=== PATIENT | female | born 1945 | race African-American/Black ===

== ENCOUNTER 2021-01-10 08:16 | Emergency (ER) | payer MEDICARE, OTHER ==
[~2021-01-10] VITALS: Ht 162.6 cm; Wt 72.0 kg
--- NOTE | 2021-01-10 08:56 | PHYS DOC ---
General Adult EDM: Chief Complaint: BACK PAIN - NO INJURY HPI: HPI: Patient is a 75 year old female who presented to ER for evaluation of right- sided rib pain for 3 days. Patient denies any injury. Patient lives at the residential, they did an x-ray of her thoracic spine, did not show any acute problem but arthritis. 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 Patient denies any trouble breathing, no cough, no fever. Patient has been on [place] for pain but the pain gets worse whenever she moves her upper torso. Patient said 2 years ago she had the same pain but on the left side. They did not find anything wrong then, after a month the pain went away. Review of Systems: Review of Systems: Constitutional: Denies fever or chills. [] Eyes: Denies change in visual acuity. [] HENT: Denies nasal congestion or sore throat. [] Respiratory: Denies cough or shortness of breath. [] Cardiovascular: Denies chest pain or edema. [] GI: Denies abdominal pain, nausea, vomiting, bloody stools or diarrhea. [] : Denies dysuria. [] Musculoskeletal: Denies back pain or joint pain. Positive for Right side lateral lower ribs pain. Integument: Denies rash. [] Neurologic: Denies headache, focal weakness or sensory changes. [] Endocrine: Denies polyuria or polydipsia. [] Lymphatic: Denies swollen glands. [] Psychiatric: Denies depression or anxiety. [] Heart Score: Risk Factors: Risk Factors: DM, Current or recent (<one month) smoker, HTN, HLP, family history of CAD, obesity. Risk Scores: Score 0 - 3: 2.5% MACE over next 6 weeks - Discharge Home Score 4 - 6: 20.3% MACE over next 6 weeks - Admit for Clinical Observation Score 7 - 10: 72.7% MACE over next 6 weeks - Early Invasive Strategies Allergies: Allergies: Allergies Coded Allergies Type Severity Reaction Last Updated Verified No Known Drug Allergies 01/10/21 No Physical Exam: PE: Constitutional: Well developed, well nourished, no acute distress, non-toxic appearance. [] HENT: Normocephalic, atraumatic, bilateral external ears normal, oropharynx moist, no oral exudates, nose normal. [] Eyes: PERRLA, EOMI, conjunctiva normal, no discharge. [] Neck: Normal range of motion, no tenderness, supple, no stridor. [] Cardiovascular:Heart rate regular rhythm, no murmur [] Lungs & Thorax: Bilateral breath sounds clear to auscultation. There is tenderness to palpation on right lateral rib area around RIB 8TH TO 10TH, NO CREPITUS. THERE IS NO RASH ON THIS AREA. Abdomen: Bowel sounds normal, soft, no tenderness, no masses, no pulsatile masses. [] Skin: Warm, dry, no erythema, no rash. [] Back: No tenderness, no CVA tenderness. [] Extremities: No tenderness, no cyanosis, no clubbing, ROM intact, no edema. [] Neurologic: Alert and oriented X 3. Psychologic: Affect normal, judgement normal, mood normal. [] EKG: EKG: [] Radiology/Procedures: Radiology/Procedures: [][facility] [address] [place] [address] IMAGING REPORT Signed PATIENT: LOGAN ROCHA ACCOUNT: [id number] : 1945 LOCATION: ER AGE: 75 SEX: F EXAM STATUS: REG ER ORD. PHYSICIAN: FREIDA RACHEL DO REASON: right lateral ribs pain for two days, no injury PROCEDURE: RIBS RIGHT AND PA CHEST XR RIBS MIN 3 VIEWS RT W/PA CHEST DATE: 01/10/2021 8:57 AM INDICATION: right lateral ribs pain for two days, no injury COMPARISON: None available. FINDINGS: Chest: Heart size is within normal limits. No focal consolidations are seen. No evidence for pulmonary edema, pleural effusion, or pneumothorax. Bones: No radiographic evidence for a displaced, right-sided rib fracture is seen. IMPRESSION: No radiographic evidence for right-sided rib fracture. Electronically signed by: Curt Muhammad MD (01/10/2021 9:31 AM) [id number] DICTATED and SIGNED BY: CURT MUHAMMAD MD DATE: 01/10/21 [id number] 0 Course & Med Decision Making: Course & Med Decision Making Pertinent Labs and Imaging studies reviewed. (See chart for details) Patient is a 75-year-old female who was brought here by EMS from the residential due to right-sided rib pain, patient is wheelchair-bound, she had reduced function of the left side due to CVA. There is no injury. The pain is musculoskeletal in nature, hurt worse with movement, NO RASH to consider Shingles. xray of right rib and chest shown no fracture. will discharge her home with pain medication. Dragon Disclaimer: Dragon Disclaimer: This electronic medical record was generated, in whole or in part, using a voice recognition dictation system. Departure Departure Impression: Primary Impression: Rib pain on right side Disposition: 03 DC/TRF TO SNF (Discharge back to the [facility].) Condition: IMPROVED Referrals: MAIDA HOU MD (PCP) Patient Instructions: Chest Wall Pain Additional Instructions: Thank you for visiting our Emergency Department. We appreciate you trusting us with your care. If any additional problems come up don't hesitate to return to visit us. Please follow up with your primary care provider so they can plan additional care if needed and know about the problem that you had. If symptoms worsen come back to the Emergency Department. Any concerning symptoms that start such as chest pain, shortness of air, weakness or numbness on one side of the body, running high fevers or any other concerning symptoms return to the ER. Scripts Oxycodone Hcl (OXYCODONE HCL) 5 Mg Capsule 5 MG PO PRN Q6HRS PRN for PAIN, #15 TAB 0 Refills Prov: FREIDA RACHEL DO 01/10/21 FREIDA RACHEL DO Jan 10, 2021 08:56
--- NOTE | 2021-01-10 09:33 | RAD ---
XR RIBS MIN 3 VIEWS RT W/PA CHEST DATE: 01/10/2021 8:57 AM INDICATION: right lateral ribs pain for two days, no injury COMPARISON: None available. FINDINGS: Chest: Heart size is within normal limits. No focal consolidations are seen. No evidence for pulmona ry edema, pleural effusion, or pneumothorax. Bones: No radiographic evidence for a displaced, right-sided rib fracture is seen. IMPRESSION: No radiographic evidence for right-sided rib fracture. Electronically signed by: Chance Muhammad MD (01/10/2021 9:31 AM) [id number]
[2021-01-10 09:51] VITALS: BP 126/61
[2021-01-10] MEDS ORDERED: MORPHINE SULFATE 4 MG/ML VIAL. IM ONE (10:30)
[2021-01-10] MEDS ORDERED: OXYC5CAP PO (10:44)
== END 2021-01-10 13:45 | disposition home or self-care (01) ==
LOC: ER 08:16
DX: R07.81 Pleurodynia (principal); Z86.73 Personal history of transient ischemic attack (TIA), and cerebral infarction without residual deficits
CPT/HCPCS: 71101; 96372; 99285; J2270

== ENCOUNTER 2021-03-28 18:00 | Emergency (ER) | payer MEDICARE, OTHER ==
[~2021-03-28] VITALS: Ht 162.6 cm; Wt 71.8 kg
[~2021-03-28 18:00] MED LIST: OXYC5CAP PO
--- NOTE | 2021-03-28 18:22 | PHYS DOC ---
Past Medical History Past Medical History: CVA, Depression, High Cholesterol, Hypertension, Stroke Past Surgical History: Other Additional Past Surgical Histo: [place] Smoking Status: Never Smoker Alcohol Use: None General Adult HPI: HPI: Patient is a 75-year-old female who presents from longterm via EMS for fall. Onset was 6 hours prior to arrival. Patient was standing using her assistive walking device trying to fix her bed when she lost balance and reports her right foot falling under her, reports falling onto her left hip. Did not hit head, no loss of consciousness, takes 81 mg aspirin daily. Patient was found immediately after falling and was situated upright into a wheelchair and was able to wheelchair around throughout the day. 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 It was also found that she had blood in her urine prior to departure to our ER which was a new finding for her, she is asymptomatic without any dysuria, suprapubic pain or other concerning UTI-like findings. Patient subsequently transported to our ER for further evaluation Review of Systems: Review of Systems: Fourteen body systems of review of systems have been reviewed. See HPI for pertinent positives and negative responses, other barber all other systems are negative, non-pertinent or non-contributory Heart Score: C/O Chest Pain: No HEART Score for Chest Pain: HEART Score for Chest Pain Response (Comments) Value History Slighlty/Non-Suspicious 0 Age > 65 2 Risk Factors >3 Risk Factors or Hx CAD 2 Total 4 Risk Factors: Risk Factors: DM, Current or recent (<one month) smoker, HTN, HLP, family history of CAD, obesity. Risk Scores: Score 0 - 3: 2.5% MACE over next 6 weeks - Discharge Home Score 4 - 6: 20.3% MACE over next 6 weeks - Admit for Clinical Observation Score 7 - 10: 72.7% MACE over next 6 weeks - Early Invasive Strategies Allergies: Allergies: Allergies Coded Allergies Type Severity Reaction Last Updated Verified No Known Drug Allergies 01/10/21 No Physical Exam: PE: Constitutional: Pt is oriented to person, place, and time. Pt appears well-developed and well- nourished. HEENT: Head: Normocephalic and atraumatic. TMs clear, no hemotympanum Conjunctivae and EOM are normal. Pupils are equal, round, and reactive to light. Oropharynx is clear and moist. No hematomas or lacerations or abrasions to face or scalp OP clear, no blood, no malocclusion, dentition intact Nares clear, no nasal septal hematoma Midface stable Neck: C-spine midline nontender, no step-offs Cardiovascular: Normal rate, regular rhythm and normal heart sounds. Pulmonary/Chest: Effort normal and breath sounds normal. No respiratory distress. No wheezes. CTA bilaterally Abdominal: Soft. Bowel sounds are normal. Pt exhibits no distension. There is no tenderness. Musculoskeletal: No deformities, full ROM extremities Chest wall stable Pelvis stable and non-tender No vertebral TTP and spine without stepoffs Patient does have pain with palpation deep to left lateral buttock area but does not have issues with internal and external rotation of bilateral lower extremities Patient reports unable to fully weight-bear on both lower extremities. Has pain to palpation focally to bilateral navicular bone areas. States she also has right lateral malleolus pain on palpation. Bilateral knee examinations unremarkable Neurological: Pt is alert and oriented to person, place, and time. Moving all extremities willfully, able to wiggle all fingers and toes Alert and oriented x 3 Motor and sensory function intact, downward going toes, no saddle anesthesia Skin: Skin is warm and dry. No abrasions, no lacerations Psychiatric: Behavior is appropriate for situation Current Patient Data: Vital Signs: Vital Signs Date Time Temp Pulse Resp B/P (MAP) Pulse Ox O2 Delivery O2 Flow Rate FiO2 03/28/21 18:15 98.7 110 20 135/76 (95) 96 Room Air 98.7 Vital Signs Date Time Temp Pulse Resp B/P (MAP) Pulse Ox O2 Delivery O2 Flow Rate FiO2 03/28/21 18:15 98.7 110 20 135/76 (95) 96 Room Air 98.7 EKG: EKG: [] Radiology/Procedures: Radiology/Procedures: EXAMINATION: XR FOOT_RIGHT 3 VIEWS, XR EXAM OF ANKLE 3V, XR BILATERAL HIP (WITH OR WITHOUT PELVIS) LEFT 2 VIEWS CLINICAL HISTORY: Fall onto left hip, unwitnessed fall with bilateral medial mal pain, bilateral navicular pain after fall TECHNIQUE: XR FOOT_RIGHT 3 VIEWS, XR EXAM OF ANKLE 3V, XR BILATERAL HIP (WITH OR WITHOUT PELVIS) LEFT 2 VIEWS Number of Images/Views: 3 left hip, 6 bilateral ankles 3 right foot COMPARISON: None FINDINGS: LEFT HIP: Intact left total hip arthroplasty appears in satisfactory alignment with no evidence of hardware complication. Degenerative changes in the right hip incompletely evaluated. Pubic symphysis and SI joints maintained. Partially visualized lumbar degenerative changes. No acute fracture. BILATERAL ANKLES: Joint spaces and alignment relatively well-maintained. No acute fracture. Small posterior calcaneal enthesophytes bilaterally. Subcutaneous edema greater on the left. RIGHT FOOT: Overpenetrated images somewhat limits evaluation. Interphalangeal degenerative changes. Degenerative changes first MTP joint. No acute fracture. Soft tissue prominence in the dorsal forefoot. IMPRESSION: No acute osseous abnormality. Degenerative changes as described. Electronically signed by: Arjun Tovar DO (03/28/2021 7:34 PM) [facility] Course & Med Decision Making: Course & Med Decision Making Vital signs stable, HPI concerning for low risk mechanical fall in a patient who did not hit her head or lose consciousness, fall was less than 2 feet onto the ground hitting right foot and subsequent left hip ER work-up grossly unremarkable. Radiographs were unremarkable for bilateral lower extremity and pelvis/hip bony abnormalities. I discussed most likely diagnosis of contusion with patient I discussed little utility in further diagnostic work-up such as scanning her head and neck given that she had low risk fall without head injury/loss of consciousness. Patient observed while in ER and at baseline mentation I discussed finding of hematuria with the patient that was found prior to arrival. She is asymptomatic. I discussed working this up but patient states she pees maybe once a day, she is declining straight cath at this time. She is requesting to be sent back to longterm for further evaluation by her [employer] there Given that she is hemodynamically stable without symptoms, has full capacity, and understands the risks and benefits of deferring work-up here in ER, I feel this is reasonable for her to be discharged back with continued outpatient follow-up. Continued supportive care practices for likely diagnosis of contusions advised. Strict return precautions were discussed with good understanding by patient. All questions and concerns addressed prior to your departure back to longterm in stable condition Anish Disclaimer: Anish Disclaimer: This electronic medical record was generated, in whole or in part, using a voice recognition dictation system. Departure Departure Impression: Primary Impression: Contusion Additional Impressions: Fall Hematuria of undiagnosed cause Disposition: 01 HOME / SELF CARE / HOMELESS Condition: STABLE Referrals: MAIDA HOU MD (PCP) Patient Instructions: Contusion, RICE - Routine Care for Injuries Additional Instructions: As discussed prior to ER departure, your ER work-up did not show any emergent and/or surgical findings Several radiographs were taken and did not show any lower extremity and/or hip bony abnormalities We discussed limited utility in CT head and neck imaging given that your fall was low risk, you braced yourself prior to impact without hitting your head, no loss of consciousness We also discussed your reported hematuria which you were unaware of at length. You are not having any concerning symptoms such as suprapubic pain or dysuria. You are unable to give a urine sample and refusing straight cath while in ER setting. You had full capacity and can make this decision With that said, I discussed the risks and benefits of deferring evaluation and potential treatment of this concerning finding. You will need to follow-up with your longterm provider for continued outpatient work-up CARRILLO. If any concerning signs or symptoms present prior to outpatient follow-up please do not hesitate to come back for repeat evaluation. It was a pleasure to take care of you and I wish you the best going forward JETT TOWNSEND DO March 28, 2021 18:22
--- NOTE | 2021-03-28 19:37 | RAD ---
EXAMINATION: XR FOOT_RIGHT 3 VIEWS, XR EXAM OF ANKLE 3V, XR BILATERAL HIP (WITH OR WITHOUT PELVIS) LE FT 2 VIEWS CLINICAL HISTORY: Fall onto left hip, unwitnessed fall with bilateral medial mal pain, bilateral sherry cular pain after fall TECHNIQUE: XR FOOT_RIGHT 3 VIEWS, XR EXAM OF ANKLE 3V, XR BILATERAL HIP (WITH OR WITHOUT PELVIS) LEFT 2 VIEWS Number of Images/Views: 3 left hip, 6 bilateral ankles 3 right foot COMPARISON: None FINDINGS: LEFT HIP: Intact left total hip arthroplasty appears in satisfactory alignment with no evidence of hardware com plication. Degenerative changes in the right hip incompletely evaluated. Pubic symphysis and SI joint s maintained. Partially visualized lumbar degenerative changes. No acute fracture. BILATERAL ANKLES: Joint spaces and alignment relatively well-maintained. No acute fracture. Small posterior calcaneal e nthesophytes bilaterally. Subcutaneous edema greater on the left. RIGHT FOOT: Overpenetrated images somewhat limits evaluation. Interphalangeal degenerative changes. Degenerative changes first MTP joint. No acute fracture. Soft tissue prominence in the dorsal forefoot. IMPRESSION: No acute osseous abnormality. Degenerative changes as described. Electronically signed by: Arjun Tovar DO (03/28/2021 7:34 PM) [facility]
[2021-03-28 20:11] VITALS: BP 114/56
== END 2021-03-28 21:50 | disposition home or self-care (01) ==
LOC: ER 18:00
DX: S70.02XA Contusion of left hip, initial encounter (principal); S90.02XA Contusion of left ankle, initial encounter; S90.01XA Contusion of right ankle, initial encounter; S90.31XA Contusion of right foot, initial encounter; R31.9 Hematuria, unspecified; W18.39XA Other fall on same level, initial encounter; Y93.89 Activity, other specified; Y92.89 Other specified places as the place of occurrence of the external cause; Y99.8 Other external cause status
CPT/HCPCS: 73502; 73630; 99284; 73610-50